=== PATIENT | female | born 1940 | race Caucasian/White ===

== ENCOUNTER 2017-04-02 13:23 | Inpatient (IN) | payer MEDICARE ==
[~2017-04-02] VITALS: Ht 160 cm; Wt 73.9 kg
[~2017-04-02 13:23] MED LIST: ACETYLCYST1000 MG/10 PO; ADULT LOW DOSE81 MG PO; ASPIRIN325; CALCIUM 600 +1 EAC5; GLUCOPHAGE1000 MG PO; GLUCOTROL10 MG PO; LISINOPRIL10 MG; LISINOPRIL40 MG PO; MULTI VITAMIN1 EACH PO; PRINZIDE 20-121 EACH; SIMVASTATIN40 MG PO
[2017-04-02 13:25] VITALS: BP 155/107
[2017-04-02 13:36] LABS: ABSOLUTE BASOPHILS 0.1 thou/uL (0.0-0.2); ABSOLUTE LYMPHOCYTES 3.5 thou/uL (0.8-5.3); ABSOLUTE MONOCYTES 0.7 thou/uL (0.0-1.2); ABSOLUTE NEUTROPHILS 5.8 thou/uL (1.6-8.1); BASOPHILS 0.7 %; EOSINOPHILS 0.5 %; HEMATOCRIT 45.6 % (37.0-47.0); HEMOGLOBIN 15.3 gm/dL (12.0-15.0); LYMPHOCYTES 34.4 %; MCHC 33.7 g/dL (28.0-37.0); MONOCYTES 6.8 %; MPV 8.2 fl. (7.2-11.1); NUCLEATED RBCS 0 /100WBC; PLATELET COUNT* 256 thou/uL (150-400); POLYS 57.6 %; RDW-CV 13.9 % (10.5-14.5); WBC 10.1 thou/uL (4.0-11.0)
[2017-04-02 13:44] LABS: ANION GAP 13 mmol/L (7-16); BUN 21 mg/dL (7-18); CALCIUM 9.7 mg/dL (8.5-10.1); CHLORIDE 98 mmol/L (98-107); CO2 27 mmol/L (21-32); CREATININE 1.2 mg/dL (0.6-1.3); GLUCOSE 380 mg/dL (70-99); POTASSIUM 3.7 mmol/L (3.5-5.1); SODIUM 138 mmol/L (136-145)
[2017-04-02 13:47] LABS: INR 1.1; PROTIME 10.5 Seconds (9.20-11.50)
[2017-04-02 13:56] LABS: ALBUMIN 3.9 g/dL (3.4-5.0); ALKALINE PHOSPHATASE 82 U/L (46-116); LIPASE 102 U/L (73-393); NT-PRO BRAIN NAT PEPTIDE 107 pg/mL (<300); SGOT 18 U/L (15-37); SGPT 18 U/L (30-65); TOTAL BILIRUBIN 1.2 mg/dL (<0.1-1.0); TOTAL PROTEIN 8.4 g/dL (6.4-8.2); TROPONIN-I LEVEL <0.06 ng/mL (<0.06)
[2017-04-02 15:30] VITALS: BP 179/88
--- NOTE | 2017-04-02 17:35 | EKG ---
[place] [address] ELECTROCARDIOGRAM REPORT Name: WILLIAMDayanaPARK E Room: [address] ADM IN ..#: [id number] Admission: 04/02/17 Attend Phys: Josey Simpson MD Discharge: Date of : 36 Report #: [id number] THIS REPORT FOR: //name// 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 : 1940 Requested By: Arnold Linton Order Number: [id number] : Panda Gilliland Measurements Intervals [place] Rate: 105 P: 75 MO: 187 QRS: -1 QRSD: 87 T: 50 QT: 325 QTc: 430 Interpretive Statements Sinus tachycardia Compared to ECG 10/22/2010 19:28:31 Sinus rhythm no longer present Electronically Signed On 04-02-2017 17:35:04 BARREL POLISHER by Panda Gilliland [email or web address] <ELECTRONICALLY SIGNED> By: Panda Gilliland MD, [facility] 04/02/17 1735 1417 1417 Panda Gilliland MD, [facility] /EPI
[2017-04-02 17:40] VITALS: BP 165/80
--- NOTE | 2017-04-02 19:00 | NUR ---
PT. ARRIVED ON UNIT AT APPROX 1710 AFTER TESTING FROM ER. PT A/OX4, VSS, MONITOR PLACED TRACING ST. PT. DENIES CURRENT PAIN/SOB. SWALLOW EVAL COMPLETED WITH NO DEFICET NOTED. PT. ALLOWED TO SIT EDGE OF BED TO EAT DINNER. FULL ASSESSMENT AND ADMISSION PROCESS COMPLETED, REFER TO CHART. APPROX. 1814 NOTIFIED BY BARREL RIFLER BROACH THAT PT. WAS EXPERIENCE SIMILA SYMPTOMS THAT BROUGHT HER IN. THIS RN WAS IN STERILE PROCEDURE IN ANOTHER ROOM, REHABILITATION TEAM LEAD GIULIANA INTO PT. ROOM TO ACCESS. NIH COMPLETED WITH SCORE OF 4. UPON WHEN THIS RN ARRIVED TO ROOM APPROX. 5 MINUTES LATER, ALL SYMPTOMS WERE RESOLVE AND NIH COMPLETED BY THIS RN SCORE OF ZERO. DR. CAMARILLO ON UNIT AND NOTIFIED OF FINDINGS. DR. ÁLVAREZ NOTIFIED VIA PHONE OF NEW SYMPTOMS. HEPARIN GTT ORDERED BY DR. CAMARILLO, PT. AWARE, AWAITING APTT LAB DRAW AT THIS TIME TO START GTT. PT. ORIENTED TO ROOM/CALL LIGHT. FALL PRECAUTIONS IN PLACE.
[2017-04-02 20:00] VITALS: BP 151/76
[2017-04-03] VITALS: BP 126/46; BP 126/58
[2017-04-03 02:04] LABS: HEMATOCRIT 41.2 % (37.0-47.0); HEMOGLOBIN 13.9 gm/dL (12.0-15.0); MCH 28.6 pg (26.0-34.0); MCHC 33.8 g/dL (28.0-37.0); MCV 84.7 fL (80.0-100.0); RBC 4.86 mil/uL (4.20-5.00); RDW-CV 13.7 % (10.5-14.5); WBC 8.4 thou/uL (4.0-11.0)
[2017-04-03 02:19] LABS: ALBUMIN 3.3 g/dL (3.4-5.0); CALCIUM 9.3 mg/dL (8.5-10.1); CREATININE 1.1 mg/dL (0.6-1.3); MAGNESIUM 1.7 mg/dL (1.8-2.4); POTASSIUM 3.7 mmol/L (3.5-5.1); TOTAL BILIRUBIN 0.8 mg/dL (<0.1-1.0)
[2017-04-03 03:23] LABS: CHOLESTEROL 289 mg/dL (<200); HDL CHOLESTEROL 49 mg/dL (>40); TC:HDL 5.9 Ratio (Not establshd); TRIGLYCERIDE 567 mg/dL (<150); VLDL 113 mg/dL (<40)
[2017-04-03 03:25] LABS: SERUM ASSESSMENT Moderate Lipemia
[2017-04-03 04:00] VITALS: BP 125/61
--- NOTE | 2017-04-03 04:16 | NUR ---
AT 0357 SPOKE WITH TOMÁS IN PHARMACY REGARDING HEPARIN ORDERS DVT/PE PROTOCOL ON SHEET DIFFERS FROM COMPUTER ENTRY PATIENT APTT IS 43.6 PHARMACIST INSTRUCTED TO USE PRINTED PROTOCOL PATIENT WEIGHT 46KG HEPARIN INCREASED BY 1ML/HR INFUSION CONTINUES AT 9.67 WILL CONTINUE TO MONITOR
--- NOTE | 2017-04-03 07:53 | NUR ---
ASSUMED CARE OF PATIENT AT 1900 THE PATIENT REMAINS SR ON THE MONITOR O2 SAT MAINTAINED ON 2 L NC CONTINUES TO BE UP WITH ASSIST OF 1 ET WALKER TO THE BSC/BR AT 1999 PATIENT ET FAMILY AT BEDSIDE WITHOUT NOTED S/SX OF CONCERN AT 2100 THE FAMILY NOTIFIED THE CONCRETE FLOATER WHO INFORMED NURSE OF WORSENING SPEECH AND FACIAL DROOPING SX, PATIENT R PUPIL LARGER THAN LEFT, VITALS WNL HEPARIN THERAPY ORDERED INITATED AT 2110 APPROX. BY THE TIME INFUSION AND PO MEDICATIONS ADMINISTERED SX APPEARED RESOLVED SPEECH CLEAR NO CONCERNS BY PATIENT OR FAMILY MEMBERS; AT NIH ASSESSMENT 0020 PATIENT WAS NOTED TO HAVE INCONT EPISODE ET EXACERBATION IN PATIENT SX SPEECH VERY SLURRED UNABLE TO LIFT RUE,R SIDE FACIAL WEAKNESS APPEARED CONFUSED AND DIAPHORETIC BLOOD GLUCOSE 46 INITIATED HYPOGLYCEMIC PROTOCOL RECEIVED 1 AMP OF D50, DR ÁLVAREZ UPDATED TO CHANGES WHO STATES SINCE HEPARIN WAS INITIATED THE PATIENT WOULD NOT BE A CANDIDATE FOR TPN THERE IS NOTHING MORE TO DO NO NEW ORDERS OBTAINED BLOOD GLUCOSE AT RECHECK TIME 0050 WAS BG 199 HYPOGLYCEMIA RESOLVED PATIENT REMAINED SYMPTOMATIC PAGED VIA YOU CALL MD AT INITIAL CALL NO NEW ORDERS RECEIVED CANVAS MARKER AND PROJECT ECONOMIST CALLED TO BED THE RAPID RESPONSE CALL OCCURED CT OF THE HEAD EKG S PATIENT NOTED THROWING PVC'S AND APPEARING CHONG ON MONITOR PHYSICIAN RETURNED A CALL REQUESTING FURTHER INFORMATION ON PATIENT REQUEST CT STAT BE CALLED IMMEDIATLEY UPON RECEIVING RESULTS TO CELL PHONE PHYSICIAN CALLED BACK AND STATED THAT SHE WOULD LIKE THE PATIENT TO BE TRANSFERRED TO [facility] APARNA RN STUDENT LIAISON OFFICER ALANA ASSISTED WITH ATTEMPT TO OBTAIN BED MULTIPLE PHONE CALLS OCCURED [facility] REQUESTED THAT A CTA BE OBTAINED DUE TO NEGATIVE CT PHYSICIAN ENTERED ORDER RADIOLOGY CALLED AND REPORTED PATIENT COULD NOT OBTAIN DUE TO RECENT EXPOSURE TO CONTRAST REPORTED TO YUE ET DR.BAKER TURNER DECLINED PATIENT TRANSFER PER [place] SUPERVSOR ALANA ET DR CAMARILLO DECLINED TRANSFER TO OTHER FACILITY ORDERS RECEIVED DOCUMENTED FAMILY AND PATIENT MADE AWARE GRANDAUGHTER AT BEDSIDE DENIES CONCERNS SAFETY INTERVENTIONS CONTINUE BED LOWERED WHEELS LOCKED CALL LIGHT IN REACH SIDE RAILS UP REPORT TO BE GIVEN TO ONCOMING RN
[2017-04-03 08:15] VITALS: BP 147/78
--- NOTE | 2017-04-03 08:15 | NUR ---
ASSUMED PT. CARE AND RECEIVED REPORT AT 0730. PT A/OX4, VSS, MONITOR ON TRACING SR. PT ON RA @95%. NIH THIS A.M IS 3 FOR SLIGHT RIGHT SIDE FACIAL DROOP AND RIGHT DRIFT. FULL ASSESSMENT COMPLETED, REFER TO CHARTING. PT. JEANNE AT BEDSIDE. UPDATE ON PLAN OF CARE FOR TODAY, AND CURRENT NPO STATUS UNTIL SEEN BY DR. CAMARILLO AGAIN. CALL LIGHT IN REACH, WILL CONTINUE WITH PLAN OF CARE.
--- NOTE | 2017-04-03 08:48 | NUR ---
RECEIVED CALL FROM CT. PT. ABLE TO HAVE CTA OF HEAD WITH MODIFIED PROFUSION THIS MORNING.
--- NOTE | 2017-04-03 11:25 | NUR ---
PT. EXHIBITING SYMTPOMS OF FLACCID RIGHT ARM, RIGHT LEG WEAKNESS, SLURRED SPEECH, AND FACIAL DROOP. NIH COMPLETED, REFER TO CHARTING. DR. CAMARILLO NOTIFIED OF NEW FINDINGS, UP TO UNIT TO ASSESS. DR. ÁLVAREZ NOTIFIED VIA PHONE, ON ROUTE TO HOSPITAL AT THIS TIME.
--- NOTE | 2017-04-03 11:35 | NUR ---
CM ASSESSMENT: Pt is A&O. Pt's granddtr in room. Pt resides at home with her dtr. Mostly independent with ADLs, dtr may assist as needed. Dtr completes majority of IADLs. Pt uses a walker for mobility. No hx of HH or SNF. Supportive family that is involved in POC. Pt's goal is to return home at dc, no needs anticipated. Mik.
[2017-04-03 14:07] VITALS: BP 167/63
[2017-04-03 16:00] VITALS: BP 141/57
--- NOTE | 2017-04-03 16:36 | EKG ---
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 : 1940 Requested By: Josey Simpson Order Number: [id number] Reading MD: Espinoza He Measurements Intervals [place] Rate: 56 P: 85 MI: 213 QRS: 38 QRSD: 94 T: 55 QT: 446 QTc: 431 Interpretive Statements Sinus rhythm Low voltage, precordial leads Anteroseptal infarct, old Compared to ECG 04/02/2017 14:17:27 Low QRS voltage now present Myocardial infarct finding now present Sinus tachycardia no longer present Electronically Signed On 04-03-2017 16:36:30 SUPERVISOR PUMPING by Espinoza He [email or web address] <ELECTRONICALLY SIGNED> By: Chuck He MD, [facility] 04/03/17 1636 3 Chuck He MD, [facility] /EPI
--- NOTE | 2017-04-03 16:45 | NUR ---
DR. ÁLVAREZ INTO SEE PT, ADDENDEUM TO ORIGINAL MRI NOTED POSITIVE ACUTE INFARCT. PT. AND FAMILY MADE AWARE OF FINDINGS. HEPARIN GTT DC'D PER ORDERS. PT. CONTINUES TO HAVE RIGHT SIDE SYMPTOMS. MAX ASSIST OF 2 UP TO BSC. PT. HAVING DIFFICULTY HOLDING UP TRUNK WHILE SITTING EDGE OF BED.
--- NOTE | 2017-04-03 17:49 | NUR ---
PT. HAS PAST/CURRENT COMPLAINTS OF FEELING LIKE SKIN IS "BURNING". THERE WERE QUESTIONS FROM FAMILY AND PT. IF THIS IS POSSIBLY NEUROPATHY. WILL PASS ALONG TO RN TO ADDRESS WITH PHSYICIAN IN MORNING FOR POSSIBLE TREATMENT.
[2017-04-03 20:00] VITALS: BP 108/51
[2017-04-04 00:27] VITALS: BP 146/74
[2017-04-04 03:58] VITALS: BP 138/58
[2017-04-04 04:37] LABS: POC CA IONIZED 4.8 mg/dL (4.5-5.3); POC CREATININE 0.9 mg/dL (0.6-1.3); POC HEMOGLOBIN 16.3 g/dL (12.0-17.0); POC POTASSIUM 3.6 mmol/L (3.5-4.9)
--- NOTE | 2017-04-04 07:21 | NUR ---
PATIENT NIGHT UNEVENTFUL WITHOUT SIGNIFICANT CHANGES SINCE START OF SHIFT ASSESSMENT, [facility] CONTINUE DOCUMENTED MARKED DECLINE SINCE PRIOR SHIFT FLACCID RIGHT UPPER EXTREM MAX ASSIST X 2 TO BSC WEAK TRUNK , ABILITY TO HOLD SELF UPRIGHT WEAK RLE AFFECTED SPEECH DAUGHTER REMAINS AT BEDSIDE DENIES CONCERNS SAFETY INTERVENTIONS CONTINUE REPORT GIVEN TO ONCOMING RN
--- NOTE | 2017-04-04 07:25 | NUR ---
CHANGE OF SHIFT, BEDSIDE REPORT GIVEN ASSUMED PATIENT CARE PATIENT SEN AT BEDSIDE, ASLEEP
[2017-04-04 08:00] VITALS: BP 125/99
[2017-04-04 11:30] VITALS: BP 133/66
[2017-04-04 16:00] VITALS: BP 127/53
--- NOTE | 2017-04-04 19:37 | NUR ---
PATIENT REMAINS A AND O X 4 R SIDE FLACCID LAST NIHH 5 SR/ST LUNGS CTA/DIM/RA GOOD APPETITE LAST BM UNKNOWN GOOD UO UP WITH 2 MAX MAG 1.6 TO BE REPLACED BY PM RN CALL LIGHT IN REACH AND INSTRUCTION GIVEN AND FOLLOWED ACCUCHECKS 132/291/270
[2017-04-04 20:00] VITALS: BP 133/58
[2017-04-05 00:30] VITALS: BP 130/59
[2017-04-05 04:38] VITALS: BP 169/77
[2017-04-05 05:11] LABS: HEMATOCRIT 39.5 % (37.0-47.0); MCH 28.3 pg (26.0-34.0); MCHC 32.9 g/dL (28.0-37.0); RBC 4.59 mil/uL (4.20-5.00); RDW-CV 13.6 % (10.5-14.5); WBC 6.7 thou/uL (4.0-11.0)
[2017-04-05 06:02] LABS: CALCIUM 8.7 mg/dL (8.5-10.1); CREATININE 1.1 mg/dL (0.6-1.3); POTASSIUM 4.3 mmol/L (3.5-5.1); TOTAL BILIRUBIN 0.7 mg/dL (<0.1-1.0); TOTAL PROTEIN 5.9 g/dL (6.4-8.2)
--- NOTE | 2017-04-05 07:00 | NUR ---
PATIENT CONTINUES TO PROGRESS TOWARDS GOALS EXHIBITED BETTER TRUNK CONTROL COMPARED TO PRIOR SHIFT PROM TO RUE EDUCATION ON DEEP BREATHING EXCERCISES GIVEN PATIENT AND CHILD COMMUNICATE UNDERSTANDING PATIENT TOLERATED PO MEDICATIONS ST TO EVAL FOR S/SX OF ASPIRATION RISK NIGHT UNREMARKABLE NIHS CONTINUE DOCUMENTED AT HS PATIENT RECEIVED A SNACK OF PEANUT BUTTER AND ISREAL CRACKERS PRIOR TO INSULIN ADMINISTRATION SAFETY INTERVENTIONS CONTINUE REPORT GIVEN TO ONCOMING RN F/U ON METFORMIN ORDER LAST EXPOSURE TO CONTRAST WEDNESDAY THE FAMILY REMAINS AT BEDSIDE DENIES CONCERNS
--- NOTE | 2017-04-05 10:05 | NUR ---
RECEIVED CONSULT FOR POSSIBLE REHAB ADMISSION. CONSULT HAS BEEN ACKNOWLEDGED BY MEDICAL SERVICES COORDINATOR AND DR. BLANDON. Pt WITH DX OF CVA. NEUROLOGY IS FOLLOWING. Pt EVALUATED BY PT AND OT AND HAS DEFINATE THERAPY NEEDS. ST EVALUATION IS PENDING. WILL FOLLOW ALONG WITH Pt TO SEE HOW SHE PROGRESSES AND IS ABLE TO TOLERATE THERAPIES Pt WILL NEED POST ACUTE REHAB AT DISCHARGE. THANK YOU FOR THIS CONSULT.
[2017-04-05 12:00] VITALS: BP 156/69
--- NOTE | 2017-04-05 14:06 | 2DMMODE ---
[place] [address] 2 D/M-MODE ECHOCARDIOGRAM Name: PARK OLMOS Room: [address] IN [facility]#: [id number] Admission: 04/02/17 Attend Phys: Josey Simpson, Discharge: Date of : 36 Date of Service: 04/05/17 1406 Report #: [id number] THIS REPORT FOR: //name// APPROVED REPORT Study performed: 04/05/2017 11:28:13 EXAM: Comprehensive 2D, Doppler, and color-flow Echocardiogram Patient Location: In-Patient Room #: [facility] Status: routine BSA: 1.75 HR: 86 bpm BP: 169/77 mmHg Rhythm: NSR Other Information Study Quality: Good Indications CVA/TIA Echo Enhancing Agent Indication: Rule out Shunt Agent(s) / Amount(s) Used: Agitated Saline 10 cc 2D Dimensions LVEF(%): 72.41 (>50%) IVSd: 9.74 (7-11mm) LVOT Diam: 19.72 (18-24mm) LVDd: 42.02 mm PWd: 6.95 (7-11mm) Ascending Ao: 27.54 (22-36mm) LVDs: 24.72 (25-40mm) Aortic Root: 30.56 mm Yuen's LVEF: 72.41 % Volumes Left Atrial Volume (Systole) LA ESV Index: 15.30 mL/m2 Aortic Valve AoV Peak Felipe.: 1.48 m/s AO Peak Gr.: 8.75 mmHg LVOT Max P.42 mmHg AO Mean Gr.: 5.12 mmHg LVOT Mean P.89 mmHg LVOT Max V: 1.05 m/s AO V2 VTI: 26.85 cm LVOT Mean V: 0.62 m/[place] [address] 2 D/M-MODE ECHOCARDIOGRAM Name: PARK OLMOS Room: [address] IN .R.#: [id number] Admission: 04/02/17 Attend Phys: Josey Simpson, Discharge: Date of : 36 Date of Service: 04/05/17 1406 Report #: [id number] NAIF (VTI): 2.12 cm2 LVOT V1 VTI: 18.62 cm Mitral Valve E/A Ratio: 1.04 MV Decel. Time: 160.40 ms MV E Max Felipe.: 0.88 m/s MV PHT: 46.52 ms MVA (PHT): 4.73 cm2 TDI E/Lateral E': 8.00 E/Medial E': 7.33 Medial E' Felipe.: 0.12 m/s Lateral E' Felipe.: 0.11 m/s Pulmonary Valve PV Peak Felipe.: 0.80 m/s PV Peak Gr.: 2.56 mmHg Left Ventricle The left ventricle is normal size. There is normal LV segmental wall motion. There is normal left ventricular wall thickness. Left ventricular systolic function is normal. The left ventricular ejection fraction is within the normal range. LVEF is 60%. The left ventricular diastolic function is normal. Right Ventricle The right ventricle is normal size. The right ventricular systolic function is normal. Atria The left atrium size is normal. Interatrial septum is intact without evidence of ASD or PFO. The right atrium size is normal. Aortic Valve The aortic valve is normal in structure. No aortic regurgitation is present. There is no aortic valvular stenosis. Mitral Valve The mitral valve is normal in structure. There is no mitral valve regurgitation noted. No evidence of mitral valve stenosis. Tricuspid Valve The tricuspid valve is normal in structure. Unable to assess PA pressure. Trace tricuspid regurgitation. Pulmonic Valve The pulmonary valve is normal in structure. There [place] [address] 2 D/M-MODE ECHOCARDIOGRAM Name: PARK OLMOS Room: [address] IN .R.#: [id number] Admission: 04/02/17 Attend Phys: Josey Simpson, Discharge: Date of : 36 Date of Service: 04/05/17 1406 Report #: [id number] valvular regurgitation. Great Vessels The aortic root is normal in size. IVC is normal in size and collapses with >50% inspiration Pericardium There is no pericardial effusion. <Conclusion> The left ventricle is normal size. There is normal left ventricular wall thickness. Left ventricular systolic function is normal. The left ventricular ejection fraction is within the normal range. LVEF is 60%. The left ventricular diastolic function is normal. The right ventricle is normal size. The left atrium size is normal. The right atrium size is normal. The aortic valve is normal in structure. The mitral valve is normal in structure. The tricuspid valve is normal in structure. IVC is normal in size and collapses with >50% inspiration There is no pericardial effusion. There is normal LV segmental wall motion. Interatrial septum is intact without evidence of ASD or PFO. <ELECTRONICALLY SIGNED> By: John Martinez MD, FACC 04/05/17 1406 1406 140 John Martinez MD, FACC /INF
[2017-04-05 15:00] VITALS: BP 145/66
[2017-04-05 19:45] VITALS: BP 133/97
[2017-04-06] VITALS (7 sets, daily range): BP systolic 139–172; BP diastolic 78–117
--- NOTE | 2017-04-06 04:50 | NUR ---
END SHIFT: PT RESTED WELL. NIH REMAINS 10. PT STATES SHE IS FEELING "EXTRA TIRED" TONIGHT. NSR WITH 1ST AVB NOTED. IVF INFUSING WITHOUT DIFFICUTLY. PT HAS BEEN INCONTINENT ALL SHIFT. ASSESSMENT UNCHANGED. VSS. CALL LIGHT IN REACH. PERFORMED HOURLY ROUNDING. WILL CONT TO MONITOR.
--- NOTE | 2017-04-06 09:01 | NUR ---
ASSUMED CARE OF PT AROUND 0730 THIS AM. REFER TO ASSESSMENT. PT HAS NO CONCERNS THIS AM. TELE SR. PT TO HAVE MRI DONE THIS SHIFT. NO OTHER CONCERNS AT THIS TIME. FAMILY AT BEDSIDE. CLWR. WCTM.
[2017-04-06] MEDS ORDERED: CLOPIDOGREL75 MG PO (10:56)
[2017-04-06] MEDS ORDERED: ATORVASTATIN CA20 MG PO (10:56)
[2017-04-06] MEDS ORDERED: LEVEMIR SUBQ (10:56)
[2017-04-06] MEDS ORDERED: GABAPENTIN 100100 MG PO (10:56)
[2017-04-06] MEDS ORDERED: PEPCID20 MG PO (10:56)
[2017-04-06] MEDS ORDERED: HUMULIN R100 UNIT/M SUBQ (10:56)
[2017-04-06] MEDS ORDERED: FISH OIL 1,001000 M2 PO (10:56)
[2017-04-06] MEDS ORDERED: LOPRESSOR25 PO (10:56)
--- NOTE | 2017-04-06 11:11 | NUR ---
Pt ready to dc today, Joan from rehab here to eval home situation, dtr in room. Following.
--- NOTE | 2017-04-06 12:56 | NUR ---
REPORT GIVEN TO ELOY BRADY ON REHAB FACILITY. REHAB STATES UNABLE TO TAKE PT AT THIS TIME D/T ROOM ASSIGNMENTS. WCTM TILL TRANSFER. NO OTHER CONCERNS AT THIS TIME. CLWR.
--- NOTE | 2017-04-06 13:48 | NUR ---
REVIEWED STUDENT'S CHARTING.
--- NOTE | 2017-04-06 15:00 | NUR ---
PT ADMITTED TO REHAB UNIT ROOM 321. PT TRANSFERRED WITH ALL BELONGINGS. FAMILY AT BEDSIDE. NO OTHER CONCERNS AT THIS TIME.
== END 2017-04-06 14:49 | DRG 64 ==
LOC: M.ERS 13:23 → M.2W 14:29 → M.TBA-ER 14:29 → M.2W 16:01
PROVIDERS: Emergency Medicine; Psychiatry & Neurology Neuromuscular Medicine; ADMIT Internal Medicine
DX: I63.9 Cerebral infarction, unspecified (principal); E11.00 Type 2 diabetes mellitus with hyperosmolarity without nonketotic hyperglycemic-hyperosmolar coma (NKHHC); G81.91 Hemiplegia, unspecified affecting right dominant side; R29.810 Facial weakness; R47.81 Slurred speech; E11.65 Type 2 diabetes mellitus with hyperglycemia; E78.5 Hyperlipidemia, unspecified; I10 Essential (primary) hypertension; Z86.73 Personal history of transient ischemic attack (TIA), and cerebral infarction without residual deficits; Z79.82 Long term (current) use of aspirin; Z79.899 Other long term (current) drug therapy; Z79.84 Long term (current) use of oral hypoglycemic drugs

== ENCOUNTER 2017-04-06 12:17 | Inpatient (IN) | payer MEDICARE ==
[~2017-04-06] VITALS: Ht 157.5 cm; Wt 72.6 kg
[~2017-04-06 12:17] MED LIST changes: +ATORVASTATIN CA20 MG PO; +CLOPIDOGREL75 MG PO; +FISH OIL 1,001000 M2 PO; +GABAPENTIN 100100 MG PO; +HUMULIN R100 UNIT/M SUBQ; +LEVEMIR SUBQ; +LOPRESSOR25 PO; +PEPCID20 MG PO
[2017-04-06 15:02] VITALS: BP 140/61
[2017-04-06 20:30] VITALS: BP 99/36
[2017-04-07 04:46] LABS: ABSOLUTE EOSINOPHILS 0.2 thou/uL (0.0-0.7); ABSOLUTE LYMPHOCYTES 3.1 thou/uL (0.8-5.3); ABSOLUTE MONOCYTES 0.6 thou/uL (0.0-1.2); BASOPHILS 0.5 %; EOSINOPHILS 1.9 %; HEMATOCRIT 37.1 % (37.0-47.0); HEMOGLOBIN 12.4 gm/dL (12.0-15.0); LYMPHOCYTES 39.4 %; MCH 28.7 pg (26.0-34.0); MCHC 33.4 g/dL (28.0-37.0); MPV 8.3 fl. (7.2-11.1); NUCLEATED RBCS 0 /100WBC; PLATELET COUNT* 223 thou/uL (150-400); POLYS 50.2 %; RBC 4.32 mil/uL (4.20-5.00); RDW-CV 13.8 % (10.5-14.5); WBC 7.9 thou/uL (4.0-11.0)
[2017-04-07 04:52] LABS: POTASSIUM 4.5 mmol/L (3.5-5.1)
[2017-04-07 08:00] VITALS: BP 122/80
[2017-04-07 20:05] VITALS: BP 111/55
[2017-04-08 04:07] LABS: ABSOLUTE EOSINOPHILS 0.1 thou/uL (0.0-0.7); ABSOLUTE LYMPHOCYTES 2.7 thou/uL (0.8-5.3); ABSOLUTE MONOCYTES 0.6 thou/uL (0.0-1.2); ABSOLUTE NEUTROPHILS 4.2 thou/uL (1.6-8.1); BASOPHILS 0.6 %; EOSINOPHILS 1.8 %; HEMATOCRIT 37.1 % (37.0-47.0); HEMOGLOBIN 12.6 gm/dL (12.0-15.0); LYMPHOCYTES 34.9 %; MCH 28.8 pg (26.0-34.0); MCV 84.6 fL (80.0-100.0); MONOCYTES 8.5 %; MPV 8.1 fl. (7.2-11.1); NUCLEATED RBCS 0 /100WBC; PLATELET COUNT* 214 thou/uL (150-400); POLYS 54.2 %; RBC 4.39 mil/uL (4.20-5.00); RDW-CV 13.6 % (10.5-14.5); WBC 7.7 thou/uL (4.0-11.0)
[2017-04-08 04:32] LABS: POTASSIUM 4.3 mmol/L (3.5-5.1)
[2017-04-08 08:17] VITALS: BP 134/66
[2017-04-08 20:00] VITALS: BP 103/54
[2017-04-09 07:30] VITALS: BP 134/56
[2017-04-09 08:00] VITALS: BP 134/56
[2017-04-09 20:00] VITALS: BP 105/76
[2017-04-10 07:00] VITALS: BP 92/51
[2017-04-10 10:22] VITALS: BP 102/43
[2017-04-10 12:14] VITALS: BP 100/46
[2017-04-10 17:30] VITALS: BP 113/50
[2017-04-10 20:00] VITALS: BP 91/42
[2017-04-11 07:30] VITALS: BP 119/55
[2017-04-11 20:00] VITALS: BP 136/92
[2017-04-12 07:30] VITALS: BP 122/64
[2017-04-12 19:55] VITALS: BP 102/42
[2017-04-13 07:30] VITALS: BP 137/65
[2017-04-13 19:38] VITALS: BP 109/48
[2017-04-14 08:38] VITALS: BP 154/64
[2017-04-14 20:27] VITALS: BP 114/57
[2017-04-15 08:00] VITALS: BP 126/57
[2017-04-15 19:33] VITALS: BP 120/51
[2017-04-16 08:00] VITALS: BP 108/69
[2017-04-16 20:00] VITALS: BP 111/53
[2017-04-17 08:11] VITALS: BP 119/71
[2017-04-17 20:00] VITALS: BP 131/57
[2017-04-18 07:58] VITALS: BP 150/62
[2017-04-18 20:13] VITALS: BP 107/59
[2017-04-19 08:08] VITALS: BP 110/51
[2017-04-19 20:39] VITALS: BP 111/69
[2017-04-20 08:00] VITALS: BP 118/55
[2017-04-20 20:30] VITALS: BP 138/59
[2017-04-21 08:00] VITALS: BP 140/55
[2017-04-21 19:15] VITALS: BP 119/57
[2017-04-22 08:00] VITALS: BP 132/66
[2017-04-22 19:20] VITALS: BP 111/65
[2017-04-23 08:00] VITALS: BP 125/74
[2017-04-23 20:00] VITALS: BP 145/68
[2017-04-24 08:30] VITALS: BP 106/46
[2017-04-24 20:00] VITALS: BP 131/57
[2017-04-25 07:30] VITALS: BP 170/70
[2017-04-25 19:45] VITALS: BP 121/56
[2017-04-26 07:30] VITALS: BP 156/67
[2017-04-26 20:20] VITALS: BP 118/56
[2017-04-27 07:32] VITALS: BP 171/70
[2017-04-27 21:37] VITALS: BP 136/60
[2017-04-28 08:10] VITALS: BP 138/63
[2017-04-28 20:00] VITALS: BP 136/59
[2017-04-29 07:30] VITALS: BP 169/67
[2017-04-29 11:59] VITALS: BP 137/56; BP 169/67
[2017-04-29 20:21] VITALS: BP 119/66
[2017-04-30] MEDS ORDERED: MAGOX 400400 MG PO (02:51)
[2017-04-30] MEDS ORDERED: TRAMADOL 50 MG50 MG PO (02:54)
[2017-04-30 09:05] VITALS: BP 137/56
--- NOTE | 2017-05-04 14:42 | PLAN ---
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 She does have continued right facial droop, right hemiparesis, including flaccid upper extremity paresis, aphasia, dysphagia and dysarthria. She also has multiple medical comorbidities requiring acute daily medical care. MEDICAL PROGNOSIS: Good. REHABILITATION PROGNOSIS: Fair. ESTIMATED LENGTH OF STAY: 16-18 days with discharge disposition to the home setting with supportive family. Previous level of function was modified independent to independent with activities of daily living. Current level of function is minimum to maximum assistance of one depending on therapy, activity and time of day. Physical therapy will see the patient 60-90 minutes per day, 5 days per week, working on upper and lower body strength, balance, coordination, navigation. Occupational therapy will see the patient 60-90 minutes per day, 5 days per week, working on upper and lower body strength, balance, coordination, navigation, bathing, dressing, and toileting. Speech and language pathology will work with the patient 60-90 minutes per day, 5 days per week, working on aphasia, dysphagia, memory, cognition, interaction and expression. This is an overall plan of care, may change from time to time. We will team her weekly and make changes to the plan of care as needed. <ELECTRONICALLY SIGNED> By: Marisa Infante DO 05/04/17 1442 1440 [id number] Infante DO /nt
--- NOTE | 2017-05-04 14:42 | H ---
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 She had right facial droop, right-sided hemiparesis, slurred speech, aphasia and dysphagia. She does have flaccid hemiparesis on the right. She is right hand dominant female. She also has uncontrolled diabetes with a random glucose of 229 and history of TIA. She has been participating in physical and occupational therapy as well as speech and language pathology. No significant changes since the preadmission screening. Previous level of function was modified independent to independent with activities of daily living. Current level of function is minimum to maximum assistance depending on therapy, activity and time of day. Estimated length of stay is 16-18 days with discharge disposition to the home setting where she lives in a house, has supervision and assistance with her daughter. PAST MEDICAL HISTORY: Includes hypertension, uncontrolled diabetes, hyperlipidemia and obesity. PAST SURGICAL HISTORY: None. SOCIAL HISTORY: No tobacco, alcohol or illicit drug use. ALLERGIES: No known drug allergies. FAMILY HISTORY: Heart disease and diabetes. REVIEW OF SYSTEMS: A 14-point review of systems is done today, is negative except as mentioned in the HPI, specifically no fever, chest pain, shortness of breath, abdominal pain or distention. PHYSICAL EXAMINATION: SKIN: Warm and dry. No rashes or lesions noted. EXTREMITIES: She has 0/5 strength in the right upper extremity, 2-3/5 strength in the right lower extremity, 5/5 strength in the left lower extremity, 5/5 strength in the left upper extremity. NEUROLOGIC: There is continued right facial droop noted with some aphasia and dysphagia and delayed word processing. ASSESSMENT: 1. Status post left pontine cerebrovascular accident [place] [address] HISTORY AND PHYSICAL Name: PARK OLMOS Room: [address]#: [id number] Admission: 04/06/17 Attend Phys: Marsia Infante, DO Discharge: 04/30/17 Date of : 36 Report #: [id number] 2. 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 3. Aphasia, dysphagia and dysarthria. 4. Uncontrolled diabetes. 5. Hypertension, hyperlipidemia and obesity. PLAN: 1. Admission to inpatient rehabilitation. 2. PT, OT, speech, language, case management, nursing and HIMS to make evaluations and recommendations. 3. Plan of care is pending and we will team her weekly. 4. Medications were reviewed and reconciled by myself and are available in the MAR. <ELECTRONICALLY SIGNED> By: Marisa Infante DO 05/04/17 1442 1438 [id number] Infante DO /nt
--- NOTE | 2017-05-24 15:02 | D ---
[facility] [address] [place] [address] DISCHARGE SUMMARY Name: PARK OLMOS Room: [address] IN M.R.#: [id number] Admission: 04/06/17 Attend Phys: Marisa Infante, DO Discharge: 04/30/17 Date of : 36 Report #: [id number] THIS REPORT FOR: //name// CC: Robert Infante DISCHARGE DIAGNOSIS: Cerebrovascular accident. DISCHARGE DISPOSITION: To home with home health PT, OT, speech therapy. FOLLOWUP: With Neurology within 1 month, primary care physician within 1 week. Notifications for physician were given. She will maintain the same diet she was on while in house, which is regular with thin liquids. Commode for home use, 14/09 supervision with fall precautions, wheelchair for mobility due to significant impairment due to cerebrovascular accident, right upper and lower extremity hemiparesis. She is able to propel that greater than 150 feet on her own. MEDICATIONS: Reviewed and reconciled by myself and are available in the MAR. She was given prescriptions for Lipitor, Plavix, Pepcid, Neurontin, glipizide new dose 5 mg p.o. daily, lisinopril, magnesium oxide, metformin 750 mg p.o. b.i.d. new dose. She was discontinued off Provigil. Daughter will be with her 14/09 and did participate in family training and did have greater than 24 hours with her mother in the T[place]. DISCHARGE PHYSICAL EXAMINATION: GENERAL: Alert, oriented, no apparent distress. VITAL SIGNS: Reviewed and are stable. HEENT: Atraumatic, normocephalic. Pupils equal, round, reactive. ABDOMEN: Soft, nontender, nondistended. NEUROLOGIC: Cranial nerves 2-12 are grossly intact. No focal neuro deficits, 5/5 strength in the left upper and lower extremities, 2/5 strength in the right upper extremity, 3/5 strength in the right lower extremity. SKIN: Warm and dry. No rashes or lesions noted. <ELECTRONICALLY SIGNED> By: Marisa Infante DO 05/24/17 1502 1554 [id number] Infante DO /nt
== END 2017-04-30 15:30 | disposition home health service (06) | DRG 56 ==
LOC: M.REH 12:17
PROVIDERS: Internal Medicine; ADMIT Physical Medicine & Rehabilitation
DX: G81.01 Flaccid hemiplegia affecting right dominant side (principal); I63.9 Cerebral infarction, unspecified; R47.01 Aphasia; R29.810 Facial weakness; R13.10 Dysphagia, unspecified; E11.65 Type 2 diabetes mellitus with hyperglycemia; I10 Essential (primary) hypertension; E78.5 Hyperlipidemia, unspecified; E66.9 Obesity, unspecified; B37.2 Candidiasis of skin and nail; M25.552 Pain in left hip; R47.1 Dysarthria and anarthria; R26.9 Unspecified abnormalities of gait and mobility; Z68.32 Body mass index [BMI] 32.0-32.9, adult; Z86.73 Personal history of transient ischemic attack (TIA), and cerebral infarction without residual deficits; Z83.3 Family history of diabetes mellitus; Z82.49 Family history of ischemic heart disease and other diseases of the circulatory system; Z79.4 Long term (current) use of insulin; Z79.899 Other long term (current) drug therapy